=== PATIENT | female | born 1970 | race Caucasian/White ===

== ENCOUNTER 2020-04-19 17:01 | Emergency (ER) | payer SELFPAY ==
[2020-04-19] VITALS (7 sets, daily range): BP systolic 130–145; BP diastolic 77–86; PULSE 86–88; RESP 15–54; TEMP 36.5; O2SAT 97–100; BMI 42.0
--- NOTE | 2020-04-19 17:15 | DI.RAD.S_ITS ---
PROCEDURE: XR CHEST 1V INDICATIONS: chest pain TECHNIQUE: One view of the chest was acquired. COMPARISON: None. FINDINGS: Surgical changes and devices: None. Lungs and pleura: Lungs are clear. No pleural effusions or pneumothorax. Mediastinum: Mediastinal contours appear normal. Heart size is normal. Bones and chest wall: No suspicious bony lesions. Overlying soft tissues appear unremarkable. IMPRESSION: No evidence acute pulmonary process. Dictated by: Pepe Butterfield M.D. on 04/19/2020 at 16:49 Approved by: Pepe Butterfield M.D. on 04/19/2020 at 16:49
--- NOTE | 2020-04-19 17:30 | ED.CHESTPAIN ---
HPI - Chest Pain General Chief Complaint: Chest Pain Stated Complaint: chest pains Time Seen by Provider: 04/19/20 17:21 Source: patient Mode of arrival: Family Vehicle Limitations: no limitations History of Present Illness HPI narrative: CC: Chest Pain HPI: The patient is a 49-year-old female who comes into the emergency department stating that she has pain in her left chest under her left breast which radiates straight through to her back. The pain and discomfort is sharp. She denies that it hurts to take a deep breath or to cough. However hurts to bend over and to twist. She states that the pain and discomfort is primarily sharp and is 8/10 in intensity. She denies any fall or injury. She has had no significant indigestion or heartburn. She does not remember ever having pancreatitis denies being a diabetic having high blood pressure stroke or myocardial infarction. She admits to history of asthma. She admits to being an alcoholic stating that she has had no alcohol to drink. She does not chew tobacco vape and quit smoking 24 days ago. She denies any fall or injury. She has had intermittent chills and sweats but denies any fever headache numbness or tingling loss of sensation change in vision sore throat trouble swallowing shortness of breath cough palpitations or dizziness. She denies any abdominal pain vomiting but has been nauseous. She has had no troubles urinating. Related Data Home Medications Medication Instructions Recorded Confirmed acetaminophen [Tylenol Extra 1,000 mg PO Q6HP PRN #0 tab 07/08/16 Strength] ibuprofen 800 mg PO TID #0 07/08/16 Previous Rx's Medication Instructions Recorded albuterol sulfate [Ventolin HFA] 0 puff INH Q4HP PRN #1 ea 07/08/16 beclomethasone dipropionate [Qvar] 1 puff INH BID #1 inh 07/08/16 dicyclomine 20 mg PO QID PRN #16 tab 04/19/20 hydrocodone-acetaminophen [[place]] 1 tab PO Q4-6H PRN #14 tab 04/19/20 ondansetron HCl [Zofran] 4 mg PO Q6H PRN #15 tab 04/19/20 Allergies Allergy/AdvReac Type Severity Reaction Status Date / Time No Known Drug Allergies Allergy Verified 04/19/20 17:15 Review of Systems Review of Systems Narrative: The patient's review of systems were all negative except for those mentioned in the history of present illness. Patient History Social History Smoking Status: Current every day smoker Smoking Status: Current every day smoker tobacco type: cigarettes alcohol intake frequency: 0-2 drinks per day Substance Use Type: does not use Exam Narrative Exam Narrative: PHYSICAL EXAM: CONSTITUTIONAL: Awake, Alert, Oriented, Coherent, Cooperative in NAD. Does not appear toxic or ill. The patient is holding her left chest under her left breast. HEAD: AT/NC EENT: PERRL, FROM of eyes. NOSE:No epistaxis or nasal drainage MOUTH:Oral mucosa is moist and pink, . NECK: Supple, no obvious JVD, Trachea is midline without stridor, no palpable LN. SPINE: Palpationof the cervical, Thoracic, Lumbar or Sacral spine reveals no gross deformity or tenderness. No CVA tenderness. THORAX: No deformity, retractions, the patient's chest wall is tender to palpation over the is if he sternum, lower left costal sternal margin and anterior left lower ribs under her left breast. There is no crepitus or subcutaneous air. AP compression causes mild chest pain anteriorly. LUNGS: Clear, symmetrical breath sounds without respiratory distress. HEART: Normal heart tones, regular rhythm and rate without murmur. ABDOMEN: Soft, tender to palpation in the epigastrium and left upper quadrant. Mild guarding no rebound no rigidity no palpable organomegaly. EXTREMITIES: No edema, deformity, tenderness or cyanosis. SKIN: No rash, bruising, petechiae or purpura. NEURO: Awake, alert, oriented, conversive, cranial nerves II-XII are symmetrical , moves all 4 extremities and is ambulatory. Initial Vital Signs Initial Vital Signs: Vital Signs Temperature 97.7 F 04/19/20 17:10 Pulse Rate 88 04/19/20 17:10 Respiratory Rate 18 04/19/20 17:10 Blood Pressure 145/80 H 04/19/20 17:10 Pulse Oximetry 99 04/19/20 17:10 Course Course Course Narrative: Based on her physical exam her pain and discomfort is reproducible palpating her epigastrium and left upper quadrant with mild guarding. She is tender to palpation over her is if he sternum and lower left ribs under her breast and along the lower left costal sternal margin without crepitus or subcutaneous air. The patient is being evaluated for a combination of musculoskeletal chest wall pain versus the possibility of pancreatitis. Orders Ordered: Discontinued Medications Ketorolac Tromethamine (Toradol) 30 mg IV NOW ONE Stop: 04/19/20 17:29 Last Admin: 04/19/20 17:45 Dose: 30 mg Documented by: JHON Morphine Sulfate (Morphine) 4 mg IV NOW ONE Stop: 04/19/20 18:24 Last Admin: 04/19/20 18:36 Dose: 4 mg Documented by: JHON Ondansetron HCl (Zofran) 4 mg IV NOW ONE Stop: 04/19/20 18:24 Last Admin: 04/19/20 18:36 Dose: 4 mg Documented by: JHON Vital Signs Vital signs: Vital Signs - 8 hr 04/19/20 17:10 Temperature 97.7 F Pulse Rate 88 Respiratory Rate 18 Blood Pressure 145/80 H Pulse Oximetry 99 MDM - Chest Pain Lab Data Result diagrams: 04/19/20 17:25 04/19/20 17:25 Labs: Lab Results 04/19/20 04/19/20 04/19/20 Range/Units 17:25 17:25 17:25 WBC 8.4 (4.5-11.0) X10^3/uL RBC 4.84 (4.0-5.2) X10^6/uL Hgb 13.6 (12.0-16.0) g/dL Hct 39.6 (36-46) % MCV 81.8 (80-100) fL MCH 28.1 (26-34) PG MCHC 34.3 (30-36) % RDW 13.2 (11.6-14.8) % Plt Count 241 (150-400) X10^3/uL Neut % (Auto) 66.8 (50-75) % Lymph % (Auto) 21.8 L (25-40) % [place] % (Auto) 6.2 (3-14) % Eos % (Auto) 4.7 H (2-4) % Baso % (Auto) 0.5 (0-2) % Neut # (Auto) 5600 (9751-4773) /uL Lymph # (Auto) 1800 (5294-3469) /uL [place] # (Auto) 500 (0-900) /uL Eos # (Auto) 400 (0-450) /uL Baso # (Auto) 0 (0-100) /uL PT 12.4 (10.1-12.7) SECONDS INR 1.1 (0.9-1.3) APTT 34 (26.4-36.2) SECONDS Sodium 134 L (137-145) mmol/L Potassium 4.2 (3.4-5.1) mmol/L Chloride 99 (98-107) mmol/L Carbon Dioxide 28 (22-32) mmol/L BUN 13 (7-17) mg/dL Creatinine 0.60 (0.52-1.04) mg/dL Estimated GFR > 60.0 (>60) mL/min BUN/Creatinine Ratio 21.7 (6-22) Glucose 132 H (70-100) mg/dL Calcium 10.6 H (8.4-10.2) mg/dL Total Bilirubin 0.6 (0.2-1.3) mg/dL AST 37 H (14-36) IU/L ALT 20 (<35) IU/L Alkaline Phosphatase 140 H (38-126) U/L Total Creatine Kinase 60 (30-135) U/L CK-MB (CK-2) TNP CK-MB (CK-2) Rel Index TNP Troponin I < 0.012 (0.01-0.034) ng/mL Total Protein 8.3 H (6.3-8.2) g/dL Albumin 4.3 (3.5-5.0) g/dL Globulin 4.0 (1.7-4.1) g/dL Albumin/Globulin Ratio 1.1 (1.0-2.8) Lipase 485 H (23-300) U/L Ethyl Alcohol ( - 10) mg/dL 04/19/20 Range/Units 17:25 WBC (4.5-11.0) X10^3/uL RBC (4.0-5.2) X10^6/uL Hgb (12.0-16.0) g/dL Hct (36-46) % MCV (80-100) fL MCH (26-34) PG MCHC (30-36) % RDW (11.6-14.8) % Plt Count (150-400) X10^3/uL Neut % (Auto) (50-75) % Lymph % (Auto) (25-40) % [place] % (Auto) (3-14) % Eos % (Auto) (2-4) % Baso % (Auto) (0-2) % Neut # (Auto) (4509-8789) /uL Lymph # (Auto) (3599-9439) /uL [place] # (Auto) (0-900) /uL Eos # (Auto) (0-450) /uL Baso # (Auto) (0-100) /uL PT (10.1-12.7) SECONDS INR (0.9-1.3) APTT (26.4-36.2) SECONDS Sodium (137-145) mmol/L Potassium (3.4-5.1) mmol/L Chloride (98-107) mmol/L Carbon Dioxide (22-32) mmol/L BUN (7-17) mg/dL Creatinine (0.52-1.04) mg/dL Estimated GFR (>60) mL/min BUN/Creatinine Ratio (6-22) Glucose (70-100) mg/dL Calcium (8.4-10.2) mg/dL Total Bilirubin (0.2-1.3) mg/dL AST (14-36) IU/L ALT (<35) IU/L Alkaline Phosphatase (38-126) U/L Total Creatine Kinase (30-135) U/L CK-MB (CK-2) CK-MB (CK-2) Rel Index Troponin I (0.01-0.034) ng/mL Total Protein (6.3-8.2) g/dL Albumin (3.5-5.0) g/dL Globulin (1.7-4.1) g/dL Albumin/Globulin Ratio (1.0-2.8) Lipase (23-300) U/L Ethyl Alcohol < 10 ( - 10) mg/dL ECG Data Attestation: I personally reviewed and interpreted this ECG as follows: Interpretation: 1729: His EKG obtained at 5:10 p.m. revealed a normal sinus rhythm with a ventricular rate of 87. Intervals appear to be normal with the p.r. interval being 122 milliseconds QRS 96 milliseconds and a QTC 435 milliseconds. [place] is normal. The patient has a biphasic T-wave in lead III and AVF which is primarily upgoing. The patient has flat T-waves in V1 with an upright small R-wave. There are no other acute diagnostic ST segment changes. The EKG otherwise appears normal. Discharge Plan Departure Patient Disposition: Home Clinical Impression: Atypical chest pain, Costalchondritis, Chest wall pain Acute pancreatitis Qualifiers: Pancreatitis type: unspecified pancreatitis type Acute pancreatitis complication: unspecified Qualified Code(s): K85.90 - Acute pancreatitis without necrosis or infection, unspecified Discharge Date/Time: 04/19/20 19:00 Instructions: DI for Pancreatitis, DI for Atypical Chest Pain, DI for Costochondritis Activity Restrictions/Additional Instructions: . 1. Start out on a clear liquid diet for the next 48 hours. after that advance diet as tolerated. Avoid high protein and fatty meals 2. Must drink 2-4 L of fluid per day to keep yourself hydrated. 3. Take Zofran 4 mg, 1-2 tablets every 6 hours as needed for nausea and vomiting. 4. For pain and discomfort take [place] 5/325 1-2 tablets every 6 hours for severe pain 5. Take dicyclomine 20 mg 3 times a day as needed for abdominal pain and cramps 6. If you develop severe uncontrolled pain, persistent nausea and vomiting despite medications, fever, dizziness lightheadedness, feeling faint or passing-out you need to return to the emergency department. 7. You need to make a follow-up appointment in 48-72 hours to be re-evaluated by your primary care physician or return to the emergency department for re-evaluation if you are not better. Prescriptions: New dicyclomine 20 mg tablet 20 mg PO QID PRN (Reason: abdominal pain and cramps) Qty: 16 RF: 0 hydrocodone-acetaminophen [[place]] 5-325 mg tablet 1 tab PO Q4-6H PRN (Reason: pain) Qty: 14 RF: 0 ondansetron HCl [Zofran] 4 mg tablet 4 mg PO Q6H PRN (Reason: nausea and vomiting) Qty: 15 RF: 0 No Action ibuprofen 800 MG tablet 800 mg PO TID Qty: 0 RF: 0 acetaminophen [Tylenol Extra Strength] 500 MG tablet 1,000 mg PO Q6HP PRNQty: 0 RF: 0 beclomethasone dipropionate [Qvar] 80 MCG/PUFF aerosol 1 puff INH BID Qty: 1 RF: 0 albuterol sulfate [Ventolin HFA] 90 MCG/PUFF HFA aerosol inhaler 0 puff INH Q4HP PRNQty: 1 RF: 0
[2020-04-19 17:31] LABS: Add Manual Diff / Slide Review NO; Basophils Absolute Auto 0 /uL (0-100); Basophils Percent Auto 0.5 % (0-2); Eosinophils Absolute Auto 400 /uL (0-450); Eosinophils Percent Auto 4.7 % (2-4); Hematocrit 39.6 % (36-46); Hemoglobin 13.6 g/dL (12.0-16.0); Lymphocytes Absolute Auto 1800 /uL (1100-4500); Lymphocytes Percent Auto 21.8 % (25-40); Mean Corpuscular HGB Conc 34.3 % (30-36); Mean Corpuscular Hemoglobin 28.1 PG (26-34); Mean Corpuscular Volume 81.8 fL (80-100); Monocytes Absolute Auto 500 /uL (0-900); Monocytes Percent Auto 6.2 % (3-14); Neutrophils Absolute Auto 5600 /uL (1500-7000); Neutrophils Percent Auto 66.8 % (50-75); Platelet Count 241 X10^3/uL (150-400); Red Blood Cell Count 4.84 X10^6/uL (4.0-5.2); Red Cell Distribution Width 13.2 % (11.6-14.8); White Blood Cell Count 8.4 X10^3/uL (4.5-11.0)
[2020-04-19 17:40] LABS: INR 1.1 (0.9-1.3); Prothrombin Time 12.4 SECONDS (10.1-12.7)
[2020-04-19 17:42] LABS: PTT Partial Thromboplastin Tim 34 SECONDS (26.4-36.2)
[2020-04-19 17:43] LABS: Alanine Aminotransferase 20 IU/L (<35); Albumin 4.3 g/dL (3.5-5.0); Albumin Globulin Ratio 1.1 (1.0-2.8); Alkaline Phosphatase 140 U/L (38-126); Aspartate Aminotransferase 37 IU/L (14-36); BUN Creatinine Ratio 21.7 (6-22); Bilirubin Total 0.6 mg/dL (0.2-1.3); Blood Urea Nitrogen 13 mg/dL (7-17); Calcium 10.6 mg/dL (8.4-10.2); Carbon Dioxide 28 mmol/L (22-32); Chloride 99 mmol/L (98-107); Creatine Kinase 60 U/L (30-135); Estimated Glomerular Filt Rate > 60.0 mL/min (>60); Glucose 132 mg/dL (70-100); HEMOLYSIS < 15 (0-50); Lipase 485 U/L (23-300); Potassium 4.2 mmol/L (3.4-5.1); Sodium 134 mmol/L (137-145); Total Protein 8.3 g/dL (6.3-8.2)
[2020-04-19 17:44] LABS: Ethanol (ETOH) < 10 mg/dL
[2020-04-19] MEDS: KETOROLAC 60 MG/2 ML VIAL 30 MG IV (17:45)
[2020-04-19 17:55] LABS: Troponin I < 0.012 ng/mL (0.01-0.034)
[2020-04-19] MEDS: ONDANSETRON 4 MG/2 ML INJ IV (18:36)
[2020-04-19] MEDS: MORPHINE 4 MG/ML INJ IV (18:36)
== END 2020-04-19 19:00 | disposition home or self-care (01) ==
PROVIDERS: Emergency Provider Emergency Medicine
DX: R07.89 Other chest pain (principal); M94.0 Chondrocostal junction syndrome [Tietze]; K85.90 Acute pancreatitis without necrosis or infection, unspecified
CPT/HCPCS: 36415; 71045; 80053; 80320; 82550; 83690; 84484; 85025; 85610; 85730; 93005; 96374; 96375; 99284; J1885; J2270; J2405

== ENCOUNTER 2020-05-27 14:06 | Emergency (ER) | payer SELFPAY ==
[2020-05-27 14:35] VITALS: BP 182/80; PULSE 87; RESP 14; TEMP 37.1; O2SAT 100; BMI 45.1
[2020-05-27] MEDS: SODIUM CHLORIDE 0.9% 1,000 ML 1000 ML IV ×2 (15:49→17:06)
--- NOTE | 2020-05-27 15:50 | ED_ITS ---
HPI - Nausea/Vomiting/Diarrhea General Chief complaint: Nausea/Vomiting/Diarrhea Stated complaint: diarrhea 3 days Time Seen by Provider: 05/27/20 15:22 Source: patient Mode of arrival: Ambulatory Limitations: no limitations History of Present Illness HPI Narrative: Patient complains 3 days of continuous watery diarrhea. Too numerous to count. Denies any abdominal pain. No back pain no chest pain. No nausea or vomiting. No bloody stools. Patient does drink daily but states does not feel like pancreatitis in the past. No urinary complaints. Denies . No recent illness cough cold congestion or exposure to Covid. Denies any contaminated foods. No other sick MD complaint: diarrhea Related Data Home Medications Medication Instructions Recorded Confirmed acetaminophen [Tylenol Extra 1,000 mg PO Q6HP PRN #0 tab 07/08/16 Strength] ibuprofen 800 mg PO TID #0 07/08/16 Previous Rx's Medication Instructions Recorded albuterol sulfate [Ventolin HFA] 0 puff INH Q4HP PRN #1 ea 07/08/16 beclomethasone dipropionate [Qvar] 1 puff INH BID #1 inh 07/08/16 dicyclomine 20 mg PO QID PRN #16 tab 04/19/20 hydrocodone-acetaminophen [[place]] 1 tab PO Q4-6H PRN #14 tab 04/19/20 ondansetron HCl [Zofran] 4 mg PO Q6H PRN #15 tab 04/19/20 Allergies Allergy/AdvReac Type Severity Reaction Status Date / Time No Known Drug Allergies Allergy Verified 05/27/20 14:39 Review of Systems Review of Systems Narrative: GENERAL: Denies chills, fatigue, malaise, fever, sweats. HEENT: Denies sinus pain, ear pain, sore throat, difficulty swallowing, dizziness. RESPIRATORY: Denies dyspnea, cough, wheezing, hemoptysis, sputum. CARDIOVASCULAR: Denies chest pain, palpitations, orthopnea, edema, GASTROINTESTINAL: Denies nausea, vomiting, abdominal pain,constipation, melena. Complains of watery diarrhea : Denies dysuria, frequency, incontinence, hematuria, urinary retention. MUSCULOSKELETAL: denies weakness, joint pain, or bony pain SKIN: Denies rash, skin lesions, or other NEUROLOGIC: Denies weakness, headache, numbness, change in speech, confusion, seizures, incoordination. PSYCHIATRIC: No concerning psychosocial issues. ROS Unobtainable: All systems reviewed & are unremarkable except as noted in HPI and below Patient History Social History Smoking Status: Current every day smoker Smoking Status: Current every day smoker tobacco type: cigarettes alcohol intake frequency: 0-2 drinks per day Substance Use Type: does not use Exam Narrative Exam Narrative: GENERAL: patient appears stated age. Well-nourished, well- developed patient, in no distress, not toxic HEAD: Atraumatic. Normocephalic. EYES: Pupils equal round and reactive. Extraocular motions intact. No scleral icterus. No injection or drainage. ENT: Nose without bleeding, purulent drainage. Throat without erythema, tonsillar hypertrophy or exudate. Airway patent. NECK: Trachea midline. Non tender CARDIOVASCULAR: Regular rate and rhythm without murmurs, gallops, or rubs. RESPIRATORY: Clear to auscultation. Breath sounds equal bilaterally. No wheezes, rales, or rhonchi. GASTROINTESTINAL: Abdomen soft, non-tender, nondistended. No peritoneal signs, normal bowel sounds EXTREMITIES: No edema or joint tenderness. BACK: Nontender without deformity or crepitance. No flank tenderness. NEURO: AOx3. SKIN: No rash or erythema of visible areas PSYCH: Not anxious, is cooperative Initial Vital Signs Initial Vital Signs: Vital Signs Temperature 98.7 F 05/27/20 14:35 Pulse Rate 87 05/27/20 14:35 Respiratory Rate 14 05/27/20 14:35 Blood Pressure 182/80 H 05/27/20 14:35 Pulse Oximetry 100 05/27/20 14:35 Course Orders Ordered: Discontinued Medications Diphenoxylate HCl/Atropine (Lomotil) 2 each PO NOW ONE Stop: 05/27/20 16:52 Last Admin: 05/27/20 17:06 Dose: 2 each Documented by: THAIS Sodium Chloride (Normal Saline 0.9%) 1,000 mls @ 1,000 mls/hr IV BOLUS ONE Stop: 05/27/20 16:31 Last Infusion: 05/27/20 17:06 Dose: 0 mls/hr Documented by: Admin: 05/27/20 15:49 Dose: 1,000 mls/hr Documented by: THAIS Sodium Chloride (Normal Saline 0.9%) 1,000 mls @ 1,000 mls/hr IV BOLUS ONE Stop: 05/27/20 17:52 Last Infusion: 05/27/20 17:38 Dose: 1,000 mls/hr Documented by: Admin: 05/27/20 17:06 Dose: 1,000 mls/hr Documented by: THAIS Reevaluation(s) Reevaluation #1: Feeling much better after IV fluids. Given Lomotil here. Diarrhea has improved. Patient desires discharge home Time: 17:28 Vital Signs Vital signs: Vital Signs - 8 hr 05/27/20 14:35 05/27/20 17:02 Temperature 98.7 F Pulse Rate 87 80 Respiratory Rate 14 15 Blood Pressure 182/80 H 153/75 H Pulse Oximetry 100 100 MDM - Nausea/Vomiting/Diarrhea Differential Diagnosis Differential diagnosis: Likely other (Viral diarrhea) Lab Data Attestation: I reviewed the patient's lab results. Result diagrams: 05/27/20 15:30 05/27/20 15:30 Labs: Lab Results 05/27/20 05/27/20 05/27/20 Range/Units 15:30 15:30 15:30 WBC 8.6 (4.5-11.0) X10^3/uL RBC 5.10 (4.0-5.2) X10^6/uL Hgb 14.2 (12.0-16.0) g/dL Hct 43.1 (36-46) % MCV 84.6 (80-100) fL MCH 27.9 (26-34) PG MCHC 32.9 (30-36) % RDW 15.3 H (11.6-14.8) % Plt Count 233 (150-400) X10^3/uL Neut % (Auto) 51.5 (50-75) % Lymph % (Auto) 28.7 (25-40) % [place] % (Auto) 6.3 (3-14) % Eos % (Auto) 13.2 H (2-4) % Baso % (Auto) 0.3 (0-2) % Neut # (Auto) 4400 (1907-8596) /uL Lymph # (Auto) 2500 (0114-0158) /uL [place] # (Auto) 500 (0-900) /uL Eos # (Auto) 1100 H (0-450) /uL Baso # (Auto) 0 (0-100) /uL Sodium 138 (137-145) mmol/L Potassium 4.3 (3.4-5.1) mmol/L Chloride 104 (98-107) mmol/L Carbon Dioxide 26 (22-32) mmol/L BUN 12 (7-17) mg/dL Creatinine 0.66 (0.52-1.04) mg/dL Estimated GFR > 60.0 (>60) mL/min BUN/Creatinine Ratio 18.2 (6-22) Glucose 92 (70-100) mg/dL Calcium 10.3 H (8.4-10.2) mg/dL Total Bilirubin 0.6 (0.2-1.3) mg/dL AST 67 H (14-36) IU/L ALT 37 H (<35) IU/L Alkaline Phosphatase 158 H (38-126) U/L Total Protein 8.7 H (6.3-8.2) g/dL Albumin 4.5 (3.5-5.0) g/dL Globulin 4.2 H (1.7-4.1) g/dL Albumin/Globulin Ratio 1.1 (1.0-2.8) Lipase 63 (23-300) U/L Serum , Qual Negative (Negative) Point of Care Testing Test Results Negative Urine Dip Bedside Urine Glucose Negative Bedside Urine Bilirubin + 1 Bedside Urine Ketone - Negative Urine Specific [place] 1.030 Bedside Urine Occult Blood +/- Bedside Urine pH 5.5 Bedside Urine Protein +/- 15 Bedside Urine Urobilinogen - Negative Bedside Urine Nitrite - Negative Bedside Urine Leukocytes - Negative Esterase MDM Narrative Medical decision making narrative: No indication for CT scan at this time. Normal white cell count no fever. No abdominal pain. Appropriate for Lomotil treatment as ongoing 3 days of watery diarrhea and no fever. No CT scan indicated at this time as well. No stool culture has no fever and normal white cell count Discharge Plan Departure Patient Disposition: Home Clinical Impression: Diarrhea Qualifiers: Diarrhea type: unspecified type Qualified Code(s): R19.7 - Diarrhea, unspecified Discharge Date/Time: 05/27/20 17:40 Instructions: Diarrhea Activity Restrictions/Additional Instructions: Keep well hydrated. Return if worse. See family doctor this week for recheck. Return if any questions or concerns or worsening of diarrhea. You may try [id number] antidiarrheals for next couple of days. No prescriptions needed at this time. Prescriptions: No Action ibuprofen 800 MG tablet 800 mg PO TID Qty: 0 RF: 0 acetaminophen [Tylenol Extra Strength] 500 MG tablet 1,000 mg PO Q6HP PRNQty: 0 RF: 0 beclomethasone dipropionate [Qvar] 80 MCG/PUFF aerosol 1 puff INH BID Qty: 1 RF: 0 albuterol sulfate [Ventolin HFA] 90 MCG/PUFF HFA aerosol inhaler 0 puff INH Q4HP PRNQty: 1 RF: 0 dicyclomine 20 mg tablet 20 mg PO QID PRN (Reason: abdominal pain and cramps) Qty: 16 RF: 0 hydrocodone-acetaminophen [[place]] 5-325 mg tablet 1 tab PO Q4-6H PRN (Reason: pain) Qty: 14 RF: 0 ondansetron HCl [Zofran] 4 mg tablet 4 mg PO Q6H PRN (Reason: nausea and vomiting) Qty: 15 RF: 0
[2020-05-27 15:52] LABS: Add Manual Diff / Slide Review NO; Basophils Absolute Auto 0 /uL (0-100); Basophils Percent Auto 0.3 % (0-2); Eosinophils Absolute Auto 1100 /uL (0-450); Eosinophils Percent Auto 13.2 % (2-4); Hematocrit 43.1 % (36-46); Hemoglobin 14.2 g/dL (12.0-16.0); Lymphocytes Absolute Auto 2500 /uL (1100-4500); Lymphocytes Percent Auto 28.7 % (25-40); Mean Corpuscular HGB Conc 32.9 % (30-36); Mean Corpuscular Hemoglobin 27.9 PG (26-34); Mean Corpuscular Volume 84.6 fL (80-100); Monocytes Absolute Auto 500 /uL (0-900); Monocytes Percent Auto 6.3 % (3-14); Neutrophils Absolute Auto 4400 /uL (1500-7000); Neutrophils Percent Auto 51.5 % (50-75); Platelet Count 233 X10^3/uL (150-400); Red Cell Distribution Width 15.3 % (11.6-14.8); White Blood Cell Count 8.6 X10^3/uL (4.5-11.0)
[2020-05-27 16:06] LABS: Alanine Aminotransferase 37 IU/L (<35); Albumin 4.5 g/dL (3.5-5.0); Albumin Globulin Ratio 1.1 (1.0-2.8); Alkaline Phosphatase 158 U/L (38-126); Aspartate Aminotransferase 67 IU/L (14-36); BUN Creatinine Ratio 18.2 (6-22); Bilirubin Total 0.6 mg/dL (0.2-1.3); Blood Urea Nitrogen 12 mg/dL (7-17); Calcium 10.3 mg/dL (8.4-10.2); Carbon Dioxide 26 mmol/L (22-32); Chloride 104 mmol/L (98-107); Estimated Glomerular Filt Rate > 60.0 mL/min (>60); Globulin 4.2 g/dL (1.7-4.1); Glucose 92 mg/dL (70-100); HEMOLYSIS < 15 (0-50); Lipase 63 U/L (23-300); Potassium 4.3 mmol/L (3.4-5.1); Sodium 138 mmol/L (137-145); Total Protein 8.7 g/dL (6.3-8.2)
[2020-05-27 16:08] LABS: Pregnancy Test Serum,Qual Negative (Negative)
[2020-05-27 17:02] VITALS: BP 153/75; PULSE 80; RESP 15; O2SAT 100
[2020-05-27] MEDS: DIPHENOXYLATE/ATROP 2.5/0.025 TABLET 2 EACH PO (17:06)
== END 2020-05-27 17:40 | disposition home or self-care (01) ==
PROVIDERS: Emergency Provider Emergency Medicine
DX: R19.7 Diarrhea, unspecified (principal)
CPT/HCPCS: 36415; 80053; 81003; 81025; 83690; 84703; 85025; 96360; 96361; 99284

== ENCOUNTER 2020-09-08 11:48 | Emergency (ER) | payer SELFPAY ==
[2020-09-08] VITALS (13 sets, daily range): BP systolic 138–207; BP diastolic 67–105; PULSE 84–98; RESP 13–39; TEMP 36.9; O2SAT 92–100; BMI 44.2
[2020-09-08] MEDS: ONDANSETRON 4 MG/2 ML INJ IV (12:01)
[2020-09-08 12:07] LABS: Add Manual Diff / Slide Review NO; Basophils Absolute Auto 0 /uL (0-100); Basophils Percent Auto 0.4 % (0-2); Eosinophils Absolute Auto 0 /uL (0-450); Eosinophils Percent Auto 0.1 % (2-4); Hematocrit 41.2 % (36-46); Hemoglobin 14.1 g/dL (12.0-16.0); Lymphocytes Absolute Auto 1300 /uL (1100-4500); Mean Corpuscular HGB Conc 34.1 % (30-36); Mean Corpuscular Hemoglobin 28.3 PG (26-34); Mean Corpuscular Volume 82.8 fL (80-100); Monocytes Absolute Auto 200 /uL (0-900); Monocytes Percent Auto 2.6 % (3-14); Neutrophils Absolute Auto 7700 /uL (1500-7000); Neutrophils Percent Auto 82.9 % (50-75); Platelet Count 261 X10^3/uL (150-400); Red Blood Cell Count 4.98 X10^6/uL (4.0-5.2); Red Cell Distribution Width 13.9 % (11.6-14.8); White Blood Cell Count 9.3 X10^3/uL (4.5-11.0)
[2020-09-08 12:17] LABS: Prothrombin Time 12.1 SECONDS (10.1-12.7)
[2020-09-08 12:19] LABS: PTT Partial Thromboplastin Tim 33 SECONDS (26.4-36.2)
[2020-09-08 12:20] LABS: Alanine Aminotransferase 24 IU/L (<35); Albumin 4.4 g/dL (3.5-5.0); Albumin Globulin Ratio 1.1 (1.0-2.8); Alkaline Phosphatase 161 U/L (38-126); Aspartate Aminotransferase 35 IU/L (14-36); BUN Creatinine Ratio 18.6 (6-22); Bilirubin Total 0.9 mg/dL (0.2-1.3); Blood Urea Nitrogen 8 mg/dL (7-17); Calcium 9.3 mg/dL (8.4-10.2); Carbon Dioxide 20 mmol/L (22-32); Chloride 101 mmol/L (98-107); Estimated Glomerular Filt Rate > 60.0 mL/min (>60); Globulin 4.1 g/dL (1.7-4.1); Glucose 160 mg/dL (70-100); HEMOLYSIS 35 (0-50); Lipase 625 U/L (23-300); Potassium 3.8 mmol/L (3.4-5.1); Sodium 131 mmol/L (137-145); Total Protein 8.5 g/dL (6.3-8.2)
[2020-09-08 12:28] LABS: COVID19 -Nasal RAPID Negative (Negative)
[2020-09-08] MEDS: PANTOPRAZOLE 40 MG VIAL IV (13:11)
[2020-09-08] MEDS: KETOROLAC 60 MG/2 ML VIAL 15 MG IV (13:12)
[2020-09-08] MEDS: MORPHINE 4 MG/ML INJ IV ×2 (13:12→15:09)
[2020-09-08 13:13] LABS: Creatine Kinase 147 U/L (30-135); Ethanol (ETOH) < 10 mg/dL
--- NOTE | 2020-09-08 13:19 | ED.NAVMDI ---
HPI - Nausea/Vomiting/Diarrhea <Antonio WILBERT Corley - Last Filed: 09/08/20 22:26> General Chief complaint: Nausea/Vomiting/Diarrhea Stated complaint: Nausea Vomiting Time Seen by Provider: 09/08/20 12:02 Source: EMS Mode of arrival: EMS Limitations: no limitations History of Present Illness HPI Narrative: This is a 50 year female, smoker, who has past medical history pancreatitis presents to ED with chief complain of epigastric and left upper quadrant pain radiating to back and nausea and vomiting which started at 1:30 a.m. patient reports she had drink a pint of hard liquor last night before the pain started. Patient has not been able to hydrate due to nausea and vomiting. Last solid food intake was 7:00 p.m. last night. Reports pain as 8/10 and describes as sharp. Patient reports she had similar pain with pancreatitis in the past but not with nausea and vomiting. Patient also reports feeling hot and chills as associated symptoms. Patient had refrain from drinking for about a month before restarting last night. In the past she was hospitalized 2 years ago in [place] with pancreatitis from alcohols. Otherwise patient denies chest pain, dyspnea, urinary symptoms, or dizziness. Patient also reports has an exposure to Covid the other day when she attended a . She denies respiratory symptoms. Related Data Home Medications Medication Instructions Recorded Confirmed acetaminophen [Tylenol Extra 1,000 mg PO Q6HP PRN #0 tab 07/08/16 Strength] ibuprofen 800 mg PO TID #0 07/08/16 Previous Rx's Medication Instructions Recorded albuterol sulfate [Ventolin HFA] 0 puff INH Q4HP PRN #1 ea 07/08/16 beclomethasone dipropionate [Qvar] 1 puff INH BID #1 inh 07/08/16 dicyclomine 20 mg PO QID PRN #16 tab 04/19/20 hydrocodone-acetaminophen [Coleman] 1 tab PO Q4-6H PRN #14 tab 04/19/20 ondansetron HCl [Zofran] 4 mg PO Q6H PRN #15 tab 04/19/20 dicyclomine 20 mg PO TID PRN #10 tab 09/08/20 hydrocodone-acetaminophen [Coleman] 1 tab PO Q6H PRN #10 tab 09/08/20 ondansetron 4 mg PO Q8-12H PRN #7 tab 09/08/20 Allergies Allergy/AdvReac Type Severity Reaction Status Date / Time No Known Drug Allergies Allergy Unverified 09/08/20 11:49 Review of Systems <WILBERT Little - Last Filed: 09/08/20 22:26> Review of Systems Narrative: General: See HPI HEENT: Denies sinus pain, ear pain, sore throat, difficulty swallowing, dizziness. Respiratory: Denies dyspnea, cough, wheezing, hemoptysis, sputum. Cardiovascular: Denies chest pain, palpitations, orthopnea, edema. Gastrointestinal: See HPI : Denies dysuria, frequency, incontinence, hematuria, urinary retention. Musculoskeletal: See HPI Skin: Denies rash, skin lesions, or other. Neurologic: Denies weakness, headache, numbness, change in speech, confusion, seizures, incoordination. Psychiatric: No concerning psychosocial issues. 12-point review of systems is negative except for those stated above. Patient History <WILBERT Little - Last Filed: 09/08/20 22:26> Medical History Pancreatitis Social History Smoking Status: Current every day smoker Smoking Status: Current every day smoker tobacco type: cigarettes alcohol intake frequency: 0-2 drinks per day Substance Use Type: does not use Exam <WILBERT Little - Last Filed: 09/08/20 22:26> Narrative Exam Narrative: GEN: Alert, oriented x 3, well appearing and nourished, and in no acute distress. Head: Normal cephalic, atraumatic. No scalp or temporal tenderness, palpable mass or rash. EYES: Pupils are equal, round, and reactive to light and accommodation. Extraocular muscles are intact bilaterally. There is no subconjunctival hemorrhage, exudate and sclera non-icteric. ENT: Hearing grossly intact. Mucous membrane moist, no mucosal lesion. Throat without erythema, tonsillar hypertrophy or exudate. Uvula in midline, airway patent. Neck: Trachea in midline. No JVD, non-tender without lymphadenopathy. No masses or thyroid megaly. Supple, non-tender and no meningeal signs. CARDIAC: Normal regular rate and rhythm without murmurs, gallops, or rubs. No chest wall tenderness. No peripheral edema, cyanosis or pallor. Capillary refill is less than 2 seconds. RESPIRATORY: Lungs are clear to auscultate bilaterally. No cough, wheezes, rales, or rhonchi. No stridor, respiratory distress, increase work of breathing, or accessary muscle used. ABD: Abdomen soft and non-distended. Positive Celaya's sound and left upper quadrant tender to palpate. No guarding or rebound tenderness to palpate. Bowel sounds are normal in all 4 quadrants. There is no palpable masses or organomegaly. EXT: Full painless ROM of all extremities with no loss of sensation, strength, effusion or edema. SKIN: Warm, dry, normal color for patient. No erythema, lesions or rash over visible areas. BACK: No deformity or crepitance. Thoracic back pain to palpate reports history of back pain. No rashes. No flank tenderness. NEUROLOGICAL: Alert and oriented to place, time and person. Sensation and motor function intact bilaterally. No facial droops, dysphasia. PSYCHIATRIC: Good judgement and reason, without hallucinations, abnormal affect or abnormal behaviors during the examination. Patient is not suicidal. Initial Vital Signs Initial Vital Signs: Vital Signs Temperature 98.5 F 09/08/20 11:49 Pulse Rate 93 H 09/08/20 11:49 Respiratory Rate 09/08/20 11:49 Blood Pressure 188/87 H 09/08/20 11:49 Pulse Oximetry 100 09/08/20 11:49 <Thomas Fleming DO - Last Filed: 09/09/20 07:16> Initial Vital Signs Initial Vital Signs: Vital Signs Temperature 98.5 F 09/08/20 11:49 Pulse Rate 93 H 09/08/20 11:49 Respiratory Rate 09/08/20 11:49 Blood Pressure 188/87 H 09/08/20 11:49 Pulse Oximetry 100 09/08/20 11:49 Scores <WILBERT Little - Last Filed: 09/08/20 22:26> GCS [place] coma scale eye opening: Spontaneous Jasbir coma scale verbal response: Orientated [place] coma scale motor response: Obey commands [place] coma scale total score: 15 qSOFA Altered Mental Status (GCS <15): No Respiratory rate greater than/equal to 22: No Systolic blood pressure less than or equal to 100: No qSOFA Total: 0 0-1 Not High Risk 1-3 High risk Course <Antonio Tate-WILBERT Mansfield - Last Filed: 09/08/20 22:26> Orders Ordered: Discontinued Medications Ketorolac Tromethamine (Ketorolac 60 Mg/2 Ml Vial) 15 mg IV NOW ONE Stop: 09/08/20 12:53 Last Admin: 09/08/20 13:12 Dose: 15 mg Documented by: AAKASHAPO Morphine Sulfate (Morphine 4 Mg/Ml Inj) 4 mg IV NOW ONE Stop: 09/08/20 12:49 Last Admin: 09/08/20 13:12 Dose: 4 mg Documented by: SCANAPO Morphine Sulfate (Morphine 4 Mg/Ml Inj) 4 mg IV NOW ONE Stop: 09/08/20 15:00 Last Admin: 09/08/20 15:09 Dose: 4 mg Documented by: SCANAPO Ondansetron HCl (Ondansetron 4 Mg/2 Ml Inj) 4 mg IV NOW ONE Stop: 09/08/20 11:52 Last Admin: 09/08/20 12:01 Dose: 4 mg Documented by: SCANAPO Ondansetron HCl (Ondansetron 4 Mg/2 Ml Inj) 4 mg IV NOW ONE Stop: 09/08/20 12:49 Last Admin: 09/08/20 13:12 Dose: Not Given Documented by: SCANAPO Pantoprazole Sodium (Pantoprazole 40 Mg Vial) 40 mg IV NOW ONE Stop: 09/08/20 12:49 Last Admin: 09/08/20 13:11 Dose: 40 mg Documented by: SCANAPO Reevaluation(s) Reevaluation #1: Patient reports pain and nausea have improved after the pain medication and 2nd dose of Zofran. Time: 13:20 Consultations Consultation #1: Consulted Dr. nunez with patient's physical findings and lab result. She recommended patient can be disposition to home as long as pain and nausea managed and is able to tolerate p.o. fluids without recurring vomiting and pain. Findings were discussed with patient and ice chips provided for p.o. challenge. Time: 14:00 Consultation #2: Patient is able to tolerate ice chips. Reports mild discomfort in epigastric region and rates as 4/10 at this time reports much improved. There is no chills and sweats at this time. Patient reports generally feeling better. Time: 14:56 Vital Signs Vital signs: Vital Signs - 8 hr 09/08/20 14:30 09/08/20 15:00 09/08/20 15:32 Pulse Rate 84 93 H 89 Respiratory Rate 16 Blood Pressure 151/67 H Pulse Oximetry 98 99 92 <Thomas Fleming DO - Last Filed: 09/09/20 07:16> Orders Ordered: Discontinued Medications Ketorolac Tromethamine (Ketorolac 60 Mg/2 Ml Vial) 15 mg IV NOW ONE Stop: 09/08/20 12:53 Last Admin: 09/08/20 13:12 Dose: 15 mg Documented by: GASPERO Morphine Sulfate (Morphine 4 Mg/Ml Inj) 4 mg IV NOW ONE Stop: 09/08/20 12:49 Last Admin: 09/08/20 13:12 Dose: 4 mg Documented by: AAKASHAPO Morphine Sulfate (Morphine 4 Mg/Ml Inj) 4 mg IV NOW ONE Stop: 09/08/20 15:00 Last Admin: 09/08/20 15:09 Dose: 4 mg Documented by: AAKASHAPO Ondansetron HCl (Ondansetron 4 Mg/2 Ml Inj) 4 mg IV NOW ONE Stop: 09/08/20 11:52 Last Admin: 09/08/20 12:01 Dose: 4 mg Documented by: SCANAPO Ondansetron HCl (Ondansetron 4 Mg/2 Ml Inj) 4 mg IV NOW ONE Stop: 09/08/20 12:49 Last Admin: 09/08/20 13:12 Dose: Not Given Documented by: GASPERO Pantoprazole Sodium (Pantoprazole 40 Mg Vial) 40 mg IV NOW ONE Stop: 09/08/20 12:49 Last Admin: 09/08/20 13:11 Dose: 40 mg Documented by: KIERSTEN Vital Signs Vital signs: Vital Signs - 8 hr 09/08/20 14:30 09/08/20 15:00 09/08/20 15:32 Pulse Rate 84 93 H 89 Respiratory Rate 16 Blood Pressure 151/67 H Pulse Oximetry 98 99 92 MDM - Nausea/Vomiting/Diarrhea <WILBERT Little - Last Filed: 11/23/20 22:26> Differential Diagnosis Differential diagnosis: Likely gastroenteritis, dehydration and other (pancreatitis, STEMI, NSTEMI) Medical Records Attestation: I reviewed the patient's medical records. Lab Data Attestation: I reviewed the patient's lab results. Result diagrams: 09/08/20 11:59 09/08/20 11:59 Labs: Lab Results 09/08/20 09/08/20 09/08/20 Range/Units 11:59 11:59 11:59 WBC 9.3 (4.5-11.0) X10^3/uL RBC 4.98 (4.0-5.2) X10^6/uL Hgb 14.1 (12.0-16.0) g/dL Hct 41.2 (36-46) % MCV 82.8 (80-100) fL MCH 28.3 (26-34) PG MCHC 34.1 (30-36) % RDW 13.9 (11.6-14.8) % Plt Count 261 (150-400) X10^3/uL Neut % (Auto) 82.9 H (50-75) % Lymph % (Auto) 14.0 L (25-40) % Dickinson % (Auto) 2.6 L (3-14) % Eos % (Auto) 0.1 L (2-4) % Baso % (Auto) 0.4 (0-2) % Neut # (Auto) 7700 H (3667-2440) /uL Lymph # (Auto) 1300 (8191-6314) /uL Dickinson # (Auto) 200 (0-900) /uL Eos # (Auto) 0 (0-450) /uL Baso # (Auto) 0 (0-100) /uL PT 12.1 (10.1-12.7) SECONDS INR 1.0 (0.9-1.3) APTT 33 (26.4-36.2) SECONDS Sodium 131 L (137-145) mmol/L Potassium 3.8 (3.4-5.1) mmol/L Chloride 101 (98-107) mmol/L Carbon Dioxide 20 L (22-32) mmol/L BUN 8 (7-17) mg/dL Creatinine 0.43 L (0.52-1.04) mg/dL Estimated GFR > 60.0 (>60) mL/min BUN/Creatinine Ratio 18.6 (6-22) Glucose 160 H (70-100) mg/dL Calcium 9.3 (8.4-10.2) mg/dL Total Bilirubin 0.9 (0.2-1.3) mg/dL AST 35 (14-36) IU/L ALT 24 (<35) IU/L Alkaline Phosphatase 161 H (38-126) U/L Total Creatine Kinase (30-135) U/L CK-MB (CK-2) (<2.37) ng/mL CK-MB (CK-2) Rel Index (1.5-5.0) % Troponin I (0.01-0.034) ng/mL Total Protein 8.5 H (6.3-8.2) g/dL Albumin 4.4 (3.5-5.0) g/dL Globulin 4.1 (1.7-4.1) g/dL Albumin/Globulin Ratio 1.1 (1.0-2.8) Lipase 625 H (23-300) U/L Ethyl Alcohol ( - 10) mg/dL COVID-19 PCR (Negative) 09/08/20 09/08/20 Range/Units 11:59 12:06 WBC (4.5-11.0) X10^3/uL RBC (4.0-5.2) X10^6/uL Hgb (12.0-16.0) g/dL Hct (36-46) % MCV (80-100) fL MCH (26-34) PG MCHC (30-36) % RDW (11.6-14.8) % Plt Count (150-400) X10^3/uL Neut % (Auto) (50-75) % Lymph % (Auto) (25-40) % Dickinson % (Auto) (3-14) % Eos % (Auto) (2-4) % Baso % (Auto) (0-2) % Neut # (Auto) (6932-8755) /uL Lymph # (Auto) (9082-1908) /uL Dickinson # (Auto) (0-900) /uL Eos # (Auto) (0-450) /uL Baso # (Auto) (0-100) /uL PT (10.1-12.7) SECONDS INR (0.9-1.3) APTT (26.4-36.2) SECONDS Sodium (137-145) mmol/L Potassium (3.4-5.1) mmol/L Chloride (98-107) mmol/L Carbon Dioxide (22-32) mmol/L BUN (7-17) mg/dL Creatinine (0.52-1.04) mg/dL Estimated GFR (>60) mL/min BUN/Creatinine Ratio (6-22) Glucose (70-100) mg/dL Calcium (8.4-10.2) mg/dL Total Bilirubin (0.2-1.3) mg/dL AST (14-36) IU/L ALT (<35) IU/L Alkaline Phosphatase (38-126) U/L Total Creatine Kinase 147 H (30-135) U/L CK-MB (CK-2) 0.73 (<2.37) ng/mL CK-MB (CK-2) Rel Index 0.5 L (1.5-5.0) % Troponin I < 0.012 (0.01-0.034) ng/mL Total Protein (6.3-8.2) g/dL Albumin (3.5-5.0) g/dL Globulin (1.7-4.1) g/dL Albumin/Globulin Ratio (1.0-2.8) Lipase (23-300) U/L Ethyl Alcohol < 10 ( - 10) mg/dL COVID-19 PCR Negative (Negative) Point of Care Testing Test Results Negative Urine Dip Bedside Urine Glucose Negative Bedside Urine Bilirubin - Negative Bedside Urine Ketone + 15 Urine Specific [place] 1.030 Bedside Urine Occult Blood - Negative Bedside Urine pH 6.0 Bedside Urine Protein - Negative Bedside Urine Urobilinogen - Negative Bedside Urine Nitrite - Negative Bedside Urine Leukocytes - Negative Esterase ECG Data Attestation: I personally reviewed and interpreted this ECG as follows: Prior ECG tracings: available for review Interpretation: Normal sinus rhythm rate at 89. Normal [place]. VT interval 128, QRS duration 88, QT/QTC 394/479. No acute ST changes. MDM Narrative Medical decision making narrative: This is a 50 year female who has history of pancreatitis from alcohol with very same pain presents to ED with epigastric and left upper quadrant discomfort with nausea and vomiting for about 12 hours after she had a pint of hard liquor last night after abstinent from drinking alcohol for 1-2 months. Patient denies short of breath, dizziness, chest pain. Patient is afebrile, hypertensive and reports discomfort. Symptoms managed with morphine, Zofran, pantoprazole, and Toradol and IV Fluid with much improvement. No leukocytosis with mildly elevated neutrophil of 82.9%. Mild hyponatremia of 131. Normal kidney function test. Slightly elevated glucose of 160. Normal LFT except alkaline phosphatase of 161. Lipase elevated to 625 which is less than 3 times of normal limit. Negative cardiac enzymes. Negative urine result for infection and urine . ETOH level negative. Physical exam tender to palpate in left upper quadrant and epigastric region. Given patient has thing pain when she was diagnosed with pancreatitis and had taken a pint of hard liquor prior for onset of abdominal pain nausea vomiting, other imaging test was deferred after the moderately elevated lipase of 625 with shared decision making and if the patient's symptoms were improved. Patient was able to tolerate ice chips and liquid without vomiting. She requested another dose of pain medicine before discharged to home. Patient discharged to home with small dose of and medication Coleman and Zofran for hydration along narcotic pain medication precautions. Discussed strict return precautions with patient and if pain is not improving and unable to tolerate fluids or food and return to ED for further evaluation with imaging tests. Patient verbalized the understanding in agreement with treatment plan. Advised to arrange PCP and [facility] Resource contact information provided. <Thomas Fleming, - Last Filed: 09/09/20 07:16> Lab Data Labs: Lab Results 09/08/20 09/08/20 09/08/20 Range/Units 11:59 11:59 11:59 WBC 9.3 (4.5-11.0) X10^3/uL RBC 4.98 (4.0-5.2) X10^6/uL Hgb 14.1 (12.0-16.0) g/dL Hct 41.2 (36-46) % MCV 82.8 (80-100) fL MCH 28.3 (26-34) PG MCHC 34.1 (30-36) % RDW 13.9 (11.6-14.8) % Plt Count 261 (150-400) X10^3/uL Neut % (Auto) 82.9 H (50-75) % Lymph % (Auto) 14.0 L (25-40) % Dickinson % (Auto) 2.6 L (3-14) % Eos % (Auto) 0.1 L (2-4) % Baso % (Auto) 0.4 (0-2) % Neut # (Auto) 7700 H (7376-2145) /uL Lymph # (Auto) 1300 (7291-0353) /uL Dickinson # (Auto) 200 (0-900) /uL Eos # (Auto) 0 (0-450) /uL Baso # (Auto) 0 (0-100) /uL PT 12.1 (10.1-12.7) SECONDS INR 1.0 (0.9-1.3) APTT 33 (26.4-36.2) SECONDS Sodium 131 L (137-145) mmol/L Potassium 3.8 (3.4-5.1) mmol/L Chloride 101 (98-107) mmol/L Carbon Dioxide 20 L (22-32) mmol/L BUN 8 (7-17) mg/dL Creatinine 0.43 L (0.52-1.04) mg/dL Estimated GFR > 60.0 (>60) mL/min BUN/Creatinine Ratio 18.6 (6-22) Glucose 160 H (70-100) mg/dL Calcium 9.3 (8.4-10.2) mg/dL Total Bilirubin 0.9 (0.2-1.3) mg/dL AST 35 (14-36) IU/L ALT 24 (<35) IU/L Alkaline Phosphatase 161 H (38-126) U/L Total Creatine Kinase (30-135) U/L CK-MB (CK-2) (<2.37) ng/mL CK-MB (CK-2) Rel Index (1.5-5.0) % Troponin I (0.01-0.034) ng/mL Total Protein 8.5 H (6.3-8.2) g/dL Albumin 4.4 (3.5-5.0) g/dL Globulin 4.1 (1.7-4.1) g/dL Albumin/Globulin Ratio 1.1 (1.0-2.8) Lipase 625 H (23-300) U/L Ethyl Alcohol ( - 10) mg/dL COVID-19 PCR (Negative) 09/08/20 09/08/20 Range/Units 11:59 12:06 WBC (4.5-11.0) X10^3/uL RBC (4.0-5.2) X10^6/uL Hgb (12.0-16.0) g/dL Hct (36-46) % MCV (80-100) fL MCH (26-34) PG MCHC (30-36) % RDW (11.6-14.8) % Plt Count (150-400) X10^3/uL Neut % (Auto) (50-75) % Lymph % (Auto) (25-40) % Dickinson % (Auto) (3-14) % Eos % (Auto) (2-4) % Baso % (Auto) (0-2) % Neut # (Auto) (2449-1127) /uL Lymph # (Auto) (0243-9015) /uL Dickinson # (Auto) (0-900) /uL Eos # (Auto) (0-450) /uL Baso # (Auto) (0-100) /uL PT (10.1-12.7) SECONDS INR (0.9-1.3) APTT (26.4-36.2) SECONDS Sodium (137-145) mmol/L Potassium (3.4-5.1) mmol/L Chloride (98-107) mmol/L Carbon Dioxide (22-32) mmol/L BUN (7-17) mg/dL Creatinine (0.52-1.04) mg/dL Estimated GFR (>60) mL/min BUN/Creatinine Ratio (6-22) Glucose (70-100) mg/dL Calcium (8.4-10.2) mg/dL Total Bilirubin (0.2-1.3) mg/dL AST (14-36) IU/L ALT (<35) IU/L Alkaline Phosphatase (38-126) U/L Total Creatine Kinase 147 H (30-135) U/L CK-MB (CK-2) 0.73 (<2.37) ng/mL CK-MB (CK-2) Rel Index 0.5 L (1.5-5.0) % Troponin I < 0.012 (0.01-0.034) ng/mL Total Protein (6.3-8.2) g/dL Albumin (3.5-5.0) g/dL Globulin (1.7-4.1) g/dL Albumin/Globulin Ratio (1.0-2.8) Lipase (23-300) U/L Ethyl Alcohol < 10 ( - 10) mg/dL COVID-19 PCR Negative (Negative) Point of Care Testing Test Results Negative Urine Dip Bedside Urine Glucose Negative Bedside Urine Bilirubin - Negative Bedside Urine Ketone + 15 Urine Specific [place] 1.030 Bedside Urine Occult Blood - Negative Bedside Urine pH 6.0 Bedside Urine Protein - Negative Bedside Urine Urobilinogen - Negative Bedside Urine Nitrite - Negative Bedside Urine Leukocytes - Negative Esterase Discharge Plan Departure Patient Disposition: Home Clinical Impression: Abdominal pain Qualifiers: Abdominal location: left upper quadrant Qualified Code(s): R10.12 - Left upper quadrant pain Pancreatitis Qualifiers: Chronicity: acute Pancreatitis type: alcohol induced Acute pancreatitis complication: unspecified Qualified Code(s): K85.20 - Alcohol induced acute pancreatitis without necrosis or infection Instructions: DI for Pancreatitis, DI for Abdominal Pain-Adult Activity Restrictions/Additional Instructions: You have been diagnosed with [upper abdominal pain with history of pancreatitis and likely mild form of pancreatitis after drinking alcohol beverages.]. What to do: *Take your medications as directed. Please take Bentyl for cramping pain as needed. You can take Coleman for severe pain which is narcotic pain medication. This can cause drowsiness so please take precautions not driving, drinking alcohol, or operating heavy equipments. Also it can cause constipation so please take precautions. *Follow up with your primary care provider in 2-3 days, call for an appointment. Let them know you were seen in the ED and that we asked you to be seen in follow up. *Return to ED if you have any new, worsening, or concerning symptoms, such as [worsening pain, unable to tolerate fluids, fever, chills, chest pain, breathing difficulty, dizziness or any acute concerns]. Prescriptions: New hydrocodone-acetaminophen [Coleman] 5-325 mg tablet 1 tab PO Q6H PRN (Reason: pain) Qty: 10 RF: 0 ondansetron 4 mg tablet,disintegrating 4 mg PO Q8-12H PRN (Reason: nausea and vomiting) Qty: 7 RF: 0 dicyclomine 20 mg tablet 20 mg PO TID PRN (Reason: Cramping pain) Qty: 10 RF: 0 No Action ibuprofen 800 MG tablet 800 mg PO TID Qty: 0 RF: 0 acetaminophen [Tylenol Extra Strength] 500 MG tablet 1,000 mg PO Q6HP PRNQty: 0 RF: 0 beclomethasone dipropionate [Qvar] 80 MCG/PUFF aerosol 1 puff INH BID Qty: 1 RF: 0 albuterol sulfate [Ventolin HFA] 90 MCG/PUFF HFA aerosol inhaler 0 puff INH Q4HP PRNQty: 1 RF: 0 dicyclomine 20 mg tablet 20 mg PO QID PRN (Reason: abdominal pain and cramps) Qty: 16 RF: 0 hydrocodone-acetaminophen [Coleman] 5-325 mg tablet 1 tab PO Q4-6H PRN (Reason: pain) Qty: 14 RF: 0 ondansetron HCl [Zofran] 4 mg tablet 4 mg PO Q6H PRN (Reason: nausea and vomiting) Qty: 15 RF: 0 Referrals: [facility] Resources [Outside] <Thomas Fleming, DO - Last Filed: 09/09/20 07:16> [facility] Dr Fleming Co-Sign Statement: I was available for consultation during this patient's emergency department visit. This chart is signed by myself for administrative purposes only. I did not have direct contact with this patient during this visit. They were seen independently by the APC.
[2020-09-08 13:25] LABS: Troponin I < 0.012 ng/mL (0.01-0.034)
[2020-09-08 13:27] LABS: CKMB % Relative Index 0.5 % (1.5-5.0); Creatine Kinase MB 0.73 ng/mL (<2.37)
== END 2020-09-08 15:50 | disposition home or self-care (01) ==
PROVIDERS: Emergency Medicine; Emergency Provider Nurse Practitioner Family
DX: K85.20 Alcohol induced acute pancreatitis without necrosis or infection (principal); R10.12 Left upper quadrant pain; R11.2 Nausea with vomiting, unspecified
CPT/HCPCS: 36415; 80053; 80320; 81003; 81025; 82550; 82553; 83690; 84484; 85025; 85610; 85730; 87635; 93005; 93010; 96374; 96375; 96376; 99281; 99284; C9113; J1885; J2270; J2405